=== PATIENT | male | born 1950 | race Caucasian/White ===

== ENCOUNTER → 2019-01-31 22:21 | Outpatient (CLI) | payer MEDICARE, OTHER, SELFPAY ==
[2019-01-31 18:51] VITALS: BMI 33.9
[2019-01-31 23:08] LABS: Absolute Lymphocyte Count 2.03 X10^3/ul (0.83-4.51); Absolute Neutrophil Count 5.1 X10^3/uL (2.0-7.7); Basophil# 0.02 X10^3/uL; Basophil% 0.3 % (0-1); Eosinophil# 0.09 X10^3/uL; Eosinophils% 1.2 % (0-5); Hematocrit 40.6 % (40-54); Hemoglobin 13.6 g/dl (13.0-16.5); Lymphocyte # 2.03 X10^3/ul (4.0); Lymphocyte % 26.1 % (19-41); Mean Corp Hgb Conc 33.5 g/gl (32-36); Mean Corpuscular Hgb 29.6 pg (27.0-32.0); Mean Corpuscular Volume 88.3 fL (80-94); Mean Platelet Vol. 9.9 fl (6.2-12.0); Monocyte# 0.53 X10^3/uL; Monocyte% 6.8 % (0-10); Neutrophil % 65.5 % (47-70); Platelet Count 294 K/mm3 (150-450); RBC Distribution Width CV 12.5 % (11.6-14.6); RBC Distribution Width SD 39.8 fl (35.1-43.9); White Blood Count 7.8 K/mm3 (4.4-11.0)
[2019-01-31 23:09] LABS: POSITIVE COUNT NO; POSITIVE DIFFERENTIAL NO; POSITIVE MORPHOLOGY NO
[2019-01-31 23:22] LABS: ALB/GLOB Ratio 1.2 RATIO (0.9-2.4); AST(SGOT) 14 U/L (15-37); Alanine Aminotransfer ALT/SGPT 23 U/L (16-61); Albumin, Serum 4.1 g/dL (3.2-5.0); Alkaline Phosphatase 69 U/L (45-117); Anion Gap 4 (5-15); BUN 22 mg/dL (7-18); Calcium,Total 9.1 mg/dL (8.5-10.1); Chloride 99 mmol/L (98-107); Creatinine, Serum 1.22 mg/dL (0.70-1.30); EST Glomerular Filtration Rate 63 mL/min (>60); Est Glom Filt Rate - Afr Amer 76 mL/min (>60); Globulin 3.5 g/dL (2.2-4.2); Glucose 162 mg/dL (74-106); Protein, Total 7.6 g/dL (6.4-8.2); Sodium Level 133 mmol/L (136-145)
== END ==
PROVIDERS: Referring Provider Nurse Practitioner; Visit Provider Nurse Practitioner
DX: M25.572 Pain in left ankle and joints of left foot (principal); E11.65 Type 2 diabetes mellitus with hyperglycemia
CPT/HCPCS: 80053; 84443; 84550; 85025

== ENCOUNTER 2019-06-27 10:30 | Outpatient (RCR) | payer MEDICARE, OTHER, SELFPAY ==
[2019-01-31 18:51] VITALS: BMI 33.9
--- NOTE | 2019-05-02 17:03 | HP.PTEVAL_ITS ---
Patient's Visit Information Nida SOTO is a 68 year old M referred to Physical Therapy by Sari Carrillo DPM with a diagnosis of L achilles tear. Date of Evaluation: 05/02/19 Physical Therapist: Polo Khan PT, ATC - Visit Plan Frequency: 2-3x /Week Duration: 6 Weeks Plan: L ankle stretching and strengthening, balance and proprioception ex's, DTR, bike, and HEP - Subjective Findings: Pt reports he injured his L achilles tendon on 01/30/19. Pt reports he was carrying a laundry basket up stairs when he partially ruptured his L achilles. Pt reports he had never had anything like this before. Pt reports he had xrays which didnt show any sathya problems. Pt reports he has no pain this date. Pt reports he had to wear 4 plates for heal lifts at first, but is now only using a small foam pad. Pt reports he still wears a cam boot and is ready to get this off as soon as possible. Pt reports 0/10 pain this date while wearing boot. No tingling or numbness in L LE. No sleep difficulty at this time. Pt reports he is retired at this time. - Pain L achilles Pain Intensity (Out of 10): 0 Pain Intensity Range: 0 - Objective Neuro: B LE sensation is WNL to light touch. Girth at malleolus line: L achilles 29.5 cm, R achilles 30 cm. ROM: R ankle DF= 10, PF= 30; L ankle DF= 0, PF= 30 degrees. MMT: R ankle is 5/5, L ankle 3/5 and painful with all testing - Goals Goal 1:: Decrease L LE pain to aid with ambulation Goal Time Frame: 4-6 Weeks Goal 2:: Increase L ankle DF ROM x 10-15 degrees to aid with restoring a more normal gait pattern Goal Time Frame: 4-6 Weeks Goal 3:: Increase L ankle strength to 5/5 throughout to aid with IADL's Goal Time Frame: 4-6 Weeks Goal 4:: I with HEP Goal Time Frame: 4-6 Weeks - Rehabilitation Potential Physical Therapy Diagnosis: L achilles tendon pain, weakness, and limited ROM secondary to a partial tear Rehabilitation Potential: Good - Anticipated Interventions Patient/Client Instruction: Educate patient on: Condition, Plan of Care For the Purpose of:: To improve self management Therapeutic Exercise to Include: Strength training, Endurance training, Balance training, Flexibilty training, Gait and locomotor training, Passive ROM, Active ROM For the Purpose of:: To decrease pain, To increase ROM, To improve muscle performance and motor function Cryotherapy (ice pack, ice massage): Yes For the Purpose of:: To decrease pain Thank you for the opportunity to evaluate your patient. For Medicare and Medicare HMO plans, please review the plan of care and approve it. It will need to be FAXED BACK to us at [phone] for Medicare purposes. For Medicare only, by signing this I certify the plan of care. Please let me know if there are questions or concerns regarding this plan of care. Physician Signature: Date:____
--- NOTE | 2019-06-27 10:53 | HP.PTDCSUM ---
HP - PT D/C Summary It has been my pleasure to treat Nida SOTO under orders from Sari Carrillo DPM, for the diagnosis of L achilles tear for a total of 21 visit(s). Discharge Date: Please see the following information for a summary of their discharge status. - Subjective Subjective: Pt reports he is ready for discharge. - Pain L achilles Pain Intensity (Out of 10): 0 - Objective Objective/Function: L ankle pain 0/10. L ankle MMT; 5/5 throughout. L ankle DF ROM= 7 degrees. Pt is I with HEP - Goals Goal 1:: Decrease L LE pain to aid with ambulation Goal Progress: Goal Met Goal 2:: Increase L ankle DF ROM x 10-15 degrees to aid with restoring a more normal gait pattern Goal Progress: Goal Met Goal 3:: Increase L ankle strength to 5/5 throughout to aid with IADL's Goal Progress: Goal Met Goal 4:: I with HEP Goal Progress: Goal Met - Plan Plan: Discharge - D/C Information If there are questions or concerns regarding this patient's physical therapy, please feel free to call me at [phone]. Thank you for the referral of this patient. Sincerely, Polo Khan, PT, ATC
== END 2019-06-27 19:00 | disposition home or self-care (01) ==
LOC: PT 10:30
PROVIDERS: Family Provider Nurse Practitioner; PCP Nurse Practitioner; Referring Provider Podiatrist; Visit Provider Podiatrist
DX: S86.012D Strain of left Achilles tendon, subsequent encounter (principal); R26.89 Other abnormalities of gait and mobility; R26.2 Difficulty in walking, not elsewhere classified
CPT/HCPCS: 97110; 97161; 97530

== ENCOUNTER → 2020-03-29 12:24 | Outpatient (CLI) | payer MEDICARE, OTHER, SELFPAY ==
[2020-01-27 19:53] VITALS: BMI 35.4
--- NOTE | 2020-03-29 12:29 | ART_ITS ---
Reason For Study: PVD Procedure A bilateral lower extremity continuous wave Doppler with analog waveform analysis,segmental pressures,and ankle brachial indexes without exercise. Left Segmental Pressures Left brachial= 166mmHg. Left posterior tibial artery = 194mmHg. Left dorsalis pedis artery = 208mmHg. Left digit = 170 mmHg. The left dorsalis pedis waveforms are triphasic. The left posterior tibial artery waveforms are triphasic. Right Segmental Pressures Right brachial= 174mmHg. Right posterior tibial artery = 206mmHg. Right dorsalis pedis artery = 218mmHg. Right digit = 149 mmHg. The right dorsalis pedis waveforms are triphasic. The right posterior tibial artery waveforms are triphasic. Indices The right ankle brachial index by the dorsalis pedis is 1.25. The right ankle brachial index by the posterior tibial artery is 1.18. The right digital-brachial index is .86. The left ankle brachial index by the dorsalis pedis is 1.2. The left ankle brachial index by the posterior tibial artery is 1.11. The left digital-brachial index is .98. Interpretation Summary Triphasic Doppler waveforms are noted at ankle level bilaterally. Pulse-volume recordings appear satisfactory at all levels bilaterally, including low-thigh, calf, ankle, and digital levels. Resting ankle-brachial indices are normal bilaterally. Digital-brachial indices are normal bilaterally. There is no evidence of significant arterial occlusive disease in the lower extremities bilaterally. Ordering Physician: Sari Carrillo Performed By: HAJA BRADEN Priyanka
== END ==
PROVIDERS: PCP Nurse Practitioner; Referring Provider Podiatrist; Visit Provider Podiatrist
DX: L97.522 Non-pressure chronic ulcer of other part of left foot with fat layer exposed (principal); I73.89 Other specified peripheral vascular diseases
CPT/HCPCS: 93923

== ENCOUNTER → 2020-05-21 11:35 | Outpatient (CLI) | payer MEDICARE, OTHER, SELFPAY ==
[2020-01-27 19:53] VITALS: BMI 35.4
[2020-05-21 12:03] LABS: Erythrocyte Sedimentation Rate 25 mm/hr (0-20)
[2020-05-21 12:04] LABS: Absolute Lymphocyte Count 2.02 X10^3/uL (0.83-4.51); Basophil# 0.03 X10^3/uL; Basophil% 0.5 % (0-1); Eosinophil# 0.08 X10^3/uL; Eosinophils% 1.2 % (0-5); Hematocrit 36.5 % (40-54); Hemoglobin 11.9 g/dL (13.0-16.5); Lymphocyte # 2.02 X10^3/ul (4.0); Lymphocyte % 30.7 % (19-41); Mean Corp Hgb Conc 32.6 g/dL (32-36); Mean Corpuscular Hgb 30.1 pg (27.0-32.0); Mean Corpuscular Volume 92.2 fL (80-94); Mean Platelet Vol. 8.9 fl (6.2-12.0); Monocyte# 0.48 X10^3/uL; Monocyte% 7.3 % (0-10); NRBC Flagged by Analyzer 0 % (0-5); Neutrophil # 3.95 X10^3/uL (2.7-7.7); Platelet Count 244 K/mm3 (150-450); RBC Distribution Width CV 12.8 % (11.6-14.6); RBC Distribution Width SD 42.2 fl (35.1-43.9); Red Blood Count 3.96 M/mm3 (4.6-6.2); White Blood Count 6.6 K/mm3 (4.4-11.0)
[2020-05-21 12:32] LABS: CRP < 2.90 mg/L (0.0-3.0)
[2020-05-21 17:10] LABS: AST(SGOT) 20 U/L (15-37); Alanine Aminotransfer ALT/SGPT 28 U/L (16-61); Albumin, Serum 3.7 g/dL (3.2-5.0); Alkaline Phosphatase 61 U/L (45-117); Anion Gap 8 (5-15); BUN 36 mg/dL (7-18); BUN/Creat Ratio 27.7 RATIO (10-20); Chloride 104 mmol/L (98-107); EST Glomerular Filtration Rate 58 mL/min (>60); Est Glom Filt Rate - Afr Amer 71 mL/min (>60); Globulin 3.8 g/dL (2.2-4.2); Glucose 88 mg/dL (74-106); Potassium 4.4 mmol/L (3.5-5.1); Protein, Total 7.5 g/dL (6.4-8.2); Sodium Level 137 mmol/L (136-145)
== END ==
PROVIDERS: PCP Nurse Practitioner; Referring Provider Podiatrist; Visit Provider Podiatrist
DX: L97.522 Non-pressure chronic ulcer of other part of left foot with fat layer exposed (principal); E11.42 Type 2 diabetes mellitus with diabetic polyneuropathy; M86.9 Osteomyelitis, unspecified
CPT/HCPCS: 36415; 80053; 83036; 85025; 85652; 86140

== ENCOUNTER → 2020-09-04 21:44 | Outpatient (CLI) | payer MEDICARE, OTHER, SELFPAY ==
[2020-09-04 19:20] VITALS: BMI 33.0
[2020-09-04 21:55] LABS: Absolute Lymphocyte Count 1.81 X10^3/uL (0.83-4.51); Absolute Neutrophil Count 4.4 X10^3/uL (2.0-7.7); Basophil# 0.03 X10^3/uL; Basophil% 0.4 % (0-1); Eosinophil# 0.06 X10^3/uL; Eosinophils% 0.9 % (0-5); Hematocrit 38.3 % (40-54); Hemoglobin 12.9 g/dL (13.0-16.5); Lymphocyte # 1.81 X10^3/ul (4.0); Lymphocyte % 26.5 % (19-41); Mean Corp Hgb Conc 33.7 g/dL (32-36); Mean Corpuscular Hgb 30.4 pg (27.0-32.0); Mean Corpuscular Volume 90.1 fL (80-94); Mean Platelet Vol. 10.3 fl (6.2-12.0); Monocyte# 0.48 X10^3/uL; NRBC Flagged by Analyzer 0 % (0-5); Neutrophil # 4.44 X10^3/uL (2.7-7.7); Neutrophil % 64.9 % (47-70); Platelet Count 244 K/mm3 (150-450); RBC Distribution Width CV 12.1 % (11.6-14.6); RBC Distribution Width SD 39.8 fl (35.1-43.9); Red Blood Count 4.25 M/mm3 (4.6-6.2); White Blood Count 6.8 K/mm3 (4.4-11.0)
[2020-09-04 22:06] LABS: ALB/GLOB Ratio 1.1 RATIO (0.9-2.4); AST(SGOT) 15 U/L (15-37); Alanine Aminotransfer ALT/SGPT 25 U/L (16-61); Alkaline Phosphatase 73 U/L (45-117); Anion Gap 7 (5-15); BUN 38 mg/dL (7-18); Calcium,Total 9.3 mg/dL (8.5-10.1); Chloride 100 mmol/L (98-107); Cholesterol 130 mg/dL (200); Creatinine, Serum 1.31 mg/dL (0.70-1.30); EST Glomerular Filtration Rate 58 mL/min (>60); Est Glom Filt Rate - Afr Amer 70 mL/min (>60); Globulin 3.6 g/dL (2.2-4.2); Glucose 212 mg/dL (74-106); High Density Lipoprotein 66 mg/dL; Potassium 4.1 mmol/L (3.5-5.1); Protein, Total 7.6 g/dL (6.4-8.2); Sodium Level 136 mmol/L (136-145); Triglycerides 53 mg/dL; Very Low Density Lipoprotein 11 mg/dL (5-40)
== END ==
LOC: OLS.AHF 21:46 → LABSPEC 09-05 06:32
PROVIDERS: Visit Provider Nurse Practitioner
DX: I10 Essential (primary) hypertension (principal); R35.0 Frequency of micturition; E11.9 Type 2 diabetes mellitus without complications; Z12.5 Encounter for screening for malignant neoplasm of prostate
CPT/HCPCS: 80053; 80061; 84153; 85025; G0103

== ENCOUNTER → 2020-09-27 22:02 | Outpatient (CLI) | payer MEDICARE, OTHER, SELFPAY ==
[2020-09-27 16:58] VITALS: BMI 32.5
[2020-09-27 22:12] LABS: Absolute Lymphocyte Count 1.94 X10^3/uL (0.83-4.51); Absolute Neutrophil Count 4.2 X10^3/uL (2.0-7.7); Basophil# 0.02 X10^3/uL; Basophil% 0.3 % (0-1); Eosinophil# 0.06 X10^3/uL; Eosinophils% 0.9 % (0-5); Hematocrit 36.7 % (40-54); Lymphocyte # 1.94 X10^3/ul (4.0); Lymphocyte % 28.2 % (19-41); Mean Corp Hgb Conc 32.7 g/dL (32-36); Mean Corpuscular Hgb 29.5 pg (27.0-32.0); Mean Corpuscular Volume 90.2 fL (80-94); Mean Platelet Vol. 10.6 fl (6.2-12.0); Monocyte# 0.59 X10^3/uL; Monocyte% 8.6 % (0-10); NRBC Flagged by Analyzer 0 % (0-5); Neutrophil # 4.24 X10^3/uL (2.7-7.7); Neutrophil % 61.7 % (47-70); Platelet Count 223 K/mm3 (150-450); RBC Distribution Width CV 12.4 % (11.6-14.6); RBC Distribution Width SD 40.7 fl (35.1-43.9); Red Blood Count 4.07 M/mm3 (4.6-6.2); White Blood Count 6.9 K/mm3 (4.4-11.0)
== END ==
PROVIDERS: Referring Provider Nurse Practitioner; Visit Provider Nurse Practitioner
DX: R22.0 Localized swelling, mass and lump, head (principal)
CPT/HCPCS: 85025

== ENCOUNTER → 2021-10-01 21:57 | Outpatient (CLI) | payer MEDICARE, OTHER, SELFPAY ==
[2021-10-01 22:14] LABS: Absolute Lymphocyte Count 1.71 X10^3/uL (0.83-4.51); Absolute Neutrophil Count 4.1 X10^3/uL (2.0-7.7); Basophil# 0.02 X10^3/uL; Basophil% 0.3 % (0-1); Eosinophil# 0.05 X10^3/uL; Eosinophils% 0.8 % (0-5); Lymphocyte # 1.71 X10^3/ul (0.83-4.51); Lymphocyte % 26.9 % (19-41); Mean Corp Hgb Conc 33.3 g/dL (32-36); Mean Corpuscular Hgb 29.9 pg (27.0-32.0); Mean Corpuscular Volume 89.6 fL (80-94); Mean Platelet Vol. 10.8 fl (6.2-12.0); Monocyte# 0.45 X10^3/uL; Monocyte% 7.1 % (0-10); NRBC Flagged by Analyzer 0 % (0-5); Neutrophil # 4.12 X10^3/uL (2.7-7.7); Neutrophil % 64.7 % (47-70); Platelet Count 237 K/mm3 (150-450); RBC Distribution Width CV 12.1 % (11.6-14.6); RBC Distribution Width SD 39.5 fl (35.1-43.9); Red Blood Count 4.02 M/mm3 (4.6-6.2); White Blood Count 6.4 K/mm3 (4.4-11.0)
[2021-10-01 22:32] LABS: ALB/GLOB Ratio 0.9 RATIO (0.9-2.4); AST(SGOT) 14 U/L (15-37); Alanine Aminotransfer ALT/SGPT 19 U/L (16-61); Albumin, Serum 3.4 g/dL (3.2-5.0); Alkaline Phosphatase 71 U/L (45-117); Anion Gap 4 (5-15); BUN 28 mg/dL (7-18); Calcium,Total 9.2 mg/dL (8.5-10.1); Chloride 101 mmol/L (98-107); Cholesterol 126 mg/dL (200); Creatinine, Serum 1.27 mg/dL (0.70-1.30); EST Glomerular Filtration Rate 60 mL/min (>60); Est Glom Filt Rate - Afr Amer 72 mL/min (>60); Globulin 3.7 g/dL (2.2-4.2); Glucose 168 mg/dL (74-106); High Density Lipoprotein 73 mg/dL; PSA,Total- Diagnostic 0.32 ng/mL (0.0-4.0); Potassium 4.5 mmol/L (3.5-5.1); Protein, Total 7.1 g/dL (6.4-8.2); Sodium Level 134 mmol/L (136-145); Triglycerides 38 mg/dL; Very Low Density Lipoprotein 8 mg/dL (5-40)
== END ==
PROVIDERS: Visit Provider Nurse Practitioner
DX: D64.9 Anemia, unspecified (principal); I10 Essential (primary) hypertension; E11.9 Type 2 diabetes mellitus without complications; R35.0 Frequency of micturition
CPT/HCPCS: 80053; 80061; 83036; 84153; 85025

== ENCOUNTER → 2022-06-11 | Outpatient (CLI) | payer MEDICARE, OTHER, SELFPAY | END | disposition home or self-care (01) | PROVIDERS: Visit Provider Nurse Practitioner | DX: E11.621 Type 2 diabetes mellitus with foot ulcer (principal); L97.511 Non-pressure chronic ulcer of other part of right foot limited to breakdown of skin; S90.421A Blister (nonthermal), right great toe, initial encounter | CPT/HCPCS: 87070; 87077; 87186; 87205 ==

== ENCOUNTER → 2022-10-15 | Outpatient (CLI) | payer MEDICARE, OTHER, SELFPAY ==
[2022-10-15 21:52] LABS: AST(SGOT) 13 U/L (15-37); Alanine Aminotransfer ALT/SGPT 22 U/L (16-61); Albumin, Serum 3.6 g/dL (3.2-5.0); Alkaline Phosphatase 77 U/L (45-117); Anion Gap 5 (5-15); BUN 50 mg/dL (7-18); BUN/Creat Ratio 32.5 RATIO (10-20); Calcium,Total 9.3 mg/dL (8.5-10.1); Chloride 101 mmol/L (98-107); Cholesterol 152 mg/dL (200); Creatinine, Serum 1.54 mg/dL (0.70-1.30); EST Glomerular Filtration Rate 48 mL/min (>60); Est Glom Filt Rate - Afr Amer 58 mL/min (>60); Globulin 3.7 g/dL (2.2-4.2); Glucose 218 mg/dL (74-106); High Density Lipoprotein 73 mg/dL; PSA,Total - Annual Screen 0.18 ng/mL (0.00-4.00); Potassium 4.8 mmol/L (3.5-5.1); Protein, Total 7.3 g/dL (6.4-8.2); Sodium Level 136 mmol/L (136-145); Triglycerides 66 mg/dL; Very Low Density Lipoprotein 13 mg/dL (5-40)
[2022-10-15 21:56] LABS: Absolute Lymphocyte Count 2.68 X10^3/uL (0.83-4.51); Absolute Neutrophil Count 3.2 X10^3/uL (2.0-7.7); Basophil# 0.02 X10^3/uL; Basophil% 0.3 % (0-1); Eosinophil# 0.11 X10^3/uL; Eosinophils% 1.7 % (0-5); Hematocrit 38.1 % (40-54); Hemoglobin 12.4 g/dL (13.0-16.5); Lymphocyte # 2.68 X10^3/ul (0.83-4.51); Lymphocyte % 41.5 % (19-41); Mean Corp Hgb Conc 32.5 g/dL (32-36); Mean Corpuscular Hgb 28.6 pg (27.0-32.0); Mean Corpuscular Volume 87.8 fL (80-94); Mean Platelet Vol. 10.5 fl (6.2-12.0); Monocyte# 0.47 X10^3/uL; Monocyte% 7.3 % (0-10); NRBC Flagged by Analyzer 0 % (0-5); Neutrophil # 3.16 X10^3/uL (2.7-7.7); Neutrophil % 48.9 % (47-70); Platelet Count 242 K/mm3 (150-450); RBC Distribution Width CV 12.4 % (11.6-14.6); RBC Distribution Width SD 39.8 fl (35.1-43.9); Red Blood Count 4.34 M/mm3 (4.6-6.2); White Blood Count 6.5 K/mm3 (4.4-11.0)
[2022-10-15 22:26] LABS: Hemoglobin A1c 10.1 % (3.8-5.6)
== END | disposition home or self-care (01) ==
PROVIDERS: Visit Provider Nurse Practitioner
DX: S81.801D Unspecified open wound, right lower leg, subsequent encounter (principal); E11.621 Type 2 diabetes mellitus with foot ulcer; L97.511 Non-pressure chronic ulcer of other part of right foot limited to breakdown of skin; E11.9 Type 2 diabetes mellitus without complications; I10 Essential (primary) hypertension; D64.9 Anemia, unspecified; R35.0 Frequency of micturition; X58.XXXD Exposure to other specified factors, subsequent encounter; Z12.5 Encounter for screening for malignant neoplasm of prostate
CPT/HCPCS: 80053; 80061; 83036; 84153; 85025; G0103

== ENCOUNTER → 2023-11-23 | Outpatient (CLI) | payer MEDICARE, OTHER, SELFPAY ==
--- OUTSIDE RECORDS SUMMARY | 2023-11-23 21:56 | XMS RPT_ITS | CCD ---
Author Name Unknown Address [address] [place] [address] Organization [facility] Care Team Providers Care Electric Motor And Generator Assembler Name Role Phone Isai Clarke Unavailable Rachell Culp Unavailable ELIOT GOFFA Darren Referring Unavailable GOFF, MARCI L Referring Unavailable Goff LEGUILLON DEBEADER.Marci VALADEZ Primary Care Provide r LIMJAMES, REJI Referring Unavailable GOFF, MARCI L Primary Care Unavailable GOFF, MARCI L Primary Care Unavailable SCHUYLER MENDOZA Referring Unavailable Goff LEGUILLON DEBEADER.HOME COMPANION, Marci L Primary Care Provide r LIMPEROS, REJI Referring Unavailable GOFF, MARCI L Primary Care Unavailable KAVITHA, CLEMENTE Referring Unavailable GOFF, MARCI L Primary Care Unavailable KAVITHA, CLEMENTE Referring Unavailable GOFF, MARCI L Primary Care Unavailable GOFF, MARCI L Primary Care Unavailable LIMPEROS, REJI Admitting Unavailable LIMPEROS, REJI Attending Unavailable LIMPEROS, REJI Admitting Unavailable LIMPEROS, REJI Attending Unavailable GOFF, MARCI L Primary Care Unavailable Allergies Allergy Classification Reported Allergen(s) Allergy Type Date of Onset Reaction(s) Facility (5 sources) FOOD EXTRACTS; Translations: [FOOD EXTRACTS] Propensity to adverse reactions to drug (disorder) 6 Swelling [facility] Other [place] [facility] Medications Completed/Discontinued Medications Medication Drug Class(es) Dates Sig (Normalized) Sig (Original) ascorbic acid 1000 mg oral tablet (2 sources) Vitamin C take 1 tablet by abigail th once daily Ascorbic Acid 1,000 mg tablet Take 1,000 mg by mouth once daily. 0 Active Problems Active Problems Problem Classification Problem Date Documented Date Episodic/Chronic Acquired foot deformities (1 source) Hallux varus (acquired), left foot; Translations: [Hallux malleus of left foot] Onset: 12-24-2022 Chronic Acquired foot deformities (2 sources) Hallux varus (acquired), right foot; Translations: [Hallux hammertoe, right] Onset: 08-18-2022 Chronic Chronic ulcer of skin (1 source) Non-pressure chronic ulcer of other part of right foot limited to breakdown of skin; Translations: [Ulcer of toe of right foot, limited to breakdown of skin (HCC)] Onset: 08-18-2022 Chronic Deficiency and other anemia (2 sources) Anemia; Translations: [Anemia, unspecified] Onset: 12-11-2022 Episodic Deficiency and other anemia (1 source) Anemia, unspecified; Translations: [Anemia, unspecified type] Onset: 12-11-2022 Episodic Diabetes mellitus with complications (4 sources) Type 2 diabetes mellitus; Translations: [Type 2 diabetes mellitus with other specified complication] Onset: 08-15-2022 Chronic Diabetes mellitus without complication (2 sources) Insulin treated type 2 diabetes mellitus; Translations: [Type 2 diabetes mellitus without complications] Onset: 08-15-2022 08-15-2022 Chronic Disorders of lipid metabolism (5 sources) Mixed hyperlipidemia; Translations: [Mixed hyperlipidemia] Onset: 08-15-2022 Chronic Essential hypertension (5 sources) Benign essential hypertension; Translations: [Essential (primary) hypertension] Onset: 08-15-2022 Chronic Osteoarthritis (18 sources) Osteoarthritis of knee; Translations: [Degenerative joint disease of shoulder region] Onset: 03-25-2016 04-19-2013 Chronic Other acquired deformities (1 source) Contracture, right foot; Translations: [Contracture of joint of right foot] Onset: 12-24-2022 Chronic Other connective tissue disease (1 source) Other specified soft tissue disorders; Translations: [Other specified soft tissue disorders] Onset: 02-01-2019 Episodic Other non-traumatic joint disorders (1 source) Pain in left ankle and joints of left foot; Translations: [Pain in left ankle and joints of left foot] Onset: 02-01-2019 Episodic Other nutritional; endocrine; and metabolic disorders (4 sources) Obesity; Translations: [Other obesity due to excess calories] Onset: 08-15-2022 Chronic Other nutritional; endocrine; and metabolic disorders (1 source) Other obesity due to excess calories; Translations: [Class 1 obesity due to excess calories with serious comorbidity and body mass index (BMI) of 34.0 to 34.9 in adult] Onset: 12-11-2022 Chronic Other nutritional; endocrine; and metabolic disorders (1 source) Body mass index (BMI) 34.0-34.9, adult; Translations: [Class 1 obesity due to excess calories with serious comorbidity and body mass index (BMI) of 34.0 to 34.9 in adult] Onset: 12-11-2022 Chronic Spondylosis; intervertebral disc disorders; other back problems (3 sources) Displacement of lumbar intervertebral disc without myelopathy; Translations: [Other intervertebral disc displacement, lumbar region] Onset: 06-24-2016 06-24-2016 Chronic Unclassified (6 sources) Aftercare ; Translations: [Encounter for other orthopedic aftercare] Onset: 05-01-2016 03-05-2017 Past or Other Problems Problem Classification Problem Date Documented Da te Episodic/Chronic Acquired foot deformities (1 source) Other deformities of toe(s) (acquired), right foot; Translations: [Acquired mallet toe, right] Onset: 08-18-2022 Episodic Joint disorders and dislocations; trauma-related (6 sources) Subluxation of joint of thoracic spine; Translations: [Subluxation complex (vertebral)] Onset: 06-24-2016 06-24-2016 Episodic Other aftercare (3 sources) Encounter for other specified surgical aftercare; Translations: [Encounter for other specified surgical aftercare] Onset: 05-27-2016 05-27-2016 Episodic Other aftercare (2 sources) FPC (current) use of insulin; Translations: [Type 2 diabetes mellitus with other specified complication, with long-term current use of insulin (HCC)] Onset: 08-15-2022 Episodic Other bone disease and musculoskeletal deformities (3 sources) Segmental and somatic dysfunction; Translations: [Segmental and somatic dysfunction of sacral region] Onset: 06-24-2016 06-24-2016 Episodic Other connective tissue disease (6 sources) Bicipital tendinitis, left shoulder; Translations: [Rotator cuff syndrome] Onset: 04-11-2016 05-08-2016 Episodic Other non-traumatic joint disorders (18 sources) Shoulder pain; Translations: [Impingement syndrome of shoulder region] Onset: 06-23-2014 11-24-2016 Episodic Residual codes; unclassified (1 source) Other specified personal risk factors, not elsewhere classified; Translations: [Other specified personal risk factors, not elsewhere classified] Onset: 08-25-2018 Episodic Sprains and strains (3 sources) Sprain of medial collateral ligament of unspecified knee, initial encounter; Translations: [Sprain of medial collateral ligament of unspecified knee, initial encounter] Onset: 06-23-2014 06-23-2014 Episodic Unclassified (3 sources) History of operative procedure on shoulder; Translations: [Presence of right artificial shoulder joint] Onset: 03-04-2017 03-05-2017 Episodic Results Test Name Value Interpretation Reference Range Facil ity Vital Signs Date Time Vital Sign Value Performing Clinician Facility 12-11-2022 14:58-0500 Diastolic blood pressure 70 mm[Hg] Pacc 2 Work Phone: [facility] 12-11-2022 14:58-0500 Systolic blood pressure 210 mm[Hg] Pacc 2 Work Phone: [facility] 12-11-2022 14:16-0500 Body height 182.9 cm Pacc 2 Work Phone: [facility] 12-11-2022 14:16-0500 Body temperature 98.29 [degF] Pacc 2 Work Phone: [facility] 12-11-2022 14:16-0500 Body weight 115.21 kg Pacc 2 Work Phone: [facility] 12-11-2022 14:16-0500 Heart rate 58 /min Pacc 2 Work Phone: [facility] 12-11-2022 14:16-0500 Respiratory rate 16 /min Pacc 2 Work Phone: [facility] 12-11-2022 14:16-0500 SaO2% (BldA) [Mass fraction] 99 % Pacc 2 Work Phone: [facility] 08-15-2022 08:08-0400 Body height 185.4 cm Pacc 1 Work Phone: [facility] 08-15-2022 08:08-0400 Body temperature 97.7 [degF] Pacc 1 Work Phone: [facility] 08-15-2022 08:08-0400 Body weight 116.12 kg Pacc 1 Work Phone: [facility] 08-15-2022 08:08-0400 Diastolic blood pressure 70 mm[Hg] Pacc 1 Work Phone: [facility] 08-15-2022 08:08-0400 Heart rate 60 /min Pacc 1 Work Phone: [facility] 08-15-2022 08:08-0400 Respiratory rate 16 /min Pacc 1 Work Phone: [facility] 08-15-2022 08:08-0400 SaO2% (BldA) [Mass fraction] 99 % Pacc 1 Work Phone: [facility] 08-15-2022 08:08-0400 Systolic blood pressure 150 mm[Hg] Pacc 1 Work Phone: [facility] 07-03-2016 11:57-0400 BMI (Body Mass Index) 31.84 kg/m2 [facility] Work Phone: 07-03-2016 11:57-0400 BP Diastolic 62 mm[Hg] [facility] Work Phone: 07-03-2016 11:57-0400 BP Systolic 158 mm[Hg] [facility] Work Phone: 07-03-2016 11:57-0400 Pulse (Heart Rate) 18 /min [facility] Work Phone: 07-03-2016 11:57-0400 Respiratory Rate 42 /min [facility] Work Phone: 07-03-2016 11:57-0400 Weight 112.49 kg [facility] Work Phone: 04-18-2013 [id number] Height 187.96 cm Rachell Culp [facility] Work Phone: Encounters Encounter Date Encounter Type Care Provider Facility Start: 12-24-2022 End: 12-24-2022 ambulatory REJI BRADY Facility:[facility] Start: 12-11-2022 End: 12-12-2022 ambulatory CLEMENTE PLUMMER Facility:[facility] Start: 12-11-2022 [facility]counter for other [facility]ced[facility] Start: 12-11-2022 End: 12-11-2022 Admission to [place] [id number] Work Phone: Start: 12-11-2022 End: 12-11-2022 [place] [id number] Work Phone: Pre Anesthesia Procedures Date Procedure Procedure Detail Performing Clinician Start: 08-15-2022 H/O: artificial joint History of right shoulder replacement [facility] Randall 1 Work Phone: Start: 11-14-2016 End: 12-03-2016 Ct upper extremity w/o dye Isai Clarke Work Phone: Start: 11-14-2016 End: 12-03-2016 X-ray exam of shoulder Isai Hines Vince Work Phone: Start: 07-10-2016 End: 07-10-2016 Chiropract manj 1-2 regions Jordyn Chung Dossi DC Work Phone: Start: 07-10-2016 End: 07-10-2016 Electric stimulation therapy Jordyn Chung Dossi DC Work Phone: Start: 07-10-2016 End: 07-10-2016 Massage therapy Jordyn Chung Dossi DC Work Phone: Start: 07-10-2016 End: 07-10-2016 Mechanical traction therapy Jordyn Chung Dossi DC Work Phone: Start: 07-10-2016 End: 12-03-2016 Mri joint upr extrem w/o dusty Lam Work Phone: Start: 07-08-2016 End: 07-08-2016 Chiropract manj 1-2 regions Jordyn B Dossi DC Work Phone: Start: 07-08-2016 End: 07-08-2016 Electric stimulation therapy Jordyn B Dossi DC Work Phone: Start: 07-08-2016 End: 12-03-2016 Follow up Appt 2x/week Jordyn B Dossi DC Work Phone: Start: 07-08-2016 End: 07-08-2016 Massage therapy Jordyn B Dossi DC Work Phone: Start: 07-03-2016 End: 07-03-2016 Chiropract manj 1-2 regions Jordyn B Dossi DC Work Phone: Start: 07-03-2016 End: 07-03-2016 Electric stimulation therapy Jordyn B Dossi DC Work Phone: Start: 07-03-2016 End: 12-03-2016 Follow up Appt 2x/week Jordyn B Dossi DC Work Phone: Start: 07-03-2016 End: 07-03-2016 Massage therapy Jordyn B Dossi DC Work Phone: Start: 06-24-2016 End: 06-24-2016 Chiropract manj 1-2 regions Jordyn B Dossi DC Work Phone: Start: 06-24-2016 End: 06-24-2016 Electric stimulation therapy Jordyn B Dossi DC Work Phone: Start: 06-24-2016 End: 12-03-2016 Follow up Appt 3x/week Jordyn B Dossi DC Work Phone: Start: 06-24-2016 End: 06-24-2016 Massage therapy Jordyn B Dossi DC Work Phone: Start: 05-28-2016 End: 05-28-2017 Physical Therapy General Karen Lam Work Phone: Start: 05-07-2016 End: 05-07-2017 Physical Therapy General Karen Lam Work Phone: Start: 04-11-2016 End: 12-03-2016 Mri joint upr extrem w/o dye Karen Lam Work Phone: Start: 03-25-2016 End: 12-03-2016 Mri joint upr extrem w/o dye Karen Lam Work Phone: Start: 10-19-2014 End: 12-03-2016 X-ray exam of shoulder Karen hill Work Phone: Plan of Treatment Date Care Activity Detail Author Start: 03-11-2023 Hemoglobin A1c/Hemoglobin.total in Blood HBA1C [facility] Start: 11-16-2022 ADVANCE DIRECTIVE DISCUSSION ADVANCE DIRECTIVE DISCUSSION [facility] Start: 11-16-2022 DEPRESSION ASSESSMENT DEPRESSION ASS ESSMENT [facility] Start: 08-15-2022 End: 10-15-2022 Hemoglobin A1c in Blood [facility] Work Phone: Payers Date Payer Category Payer Medicare [id number] 2020 Unknown MMO MMO MEDICARE SUPPLEMENT [id number] 2020-Present [phone] [address] [place] [address] Indemnity [id number] 2017 Medicare MEDICARE MEDICAR E A AND B [id number] 2017-Present [phone] [address] [address] [place] [address] Medicare [id number] 2017 Medicare [id number] Social History Date Type Detail Facility Start: 12-31-2015 Tobacco smoking stat us ARIS Never smoked tobacco [facility] Start: 12-31-2015 Tobacco use and exposure Smoke less tobacco non-user [facility] Start: 08-15-2022 End: 12-11-2022 Alcohol intake Current non-drinker of alcohol (finding) [facility] Start: 1950 Sex Assigned At Not on file [facility] Start: 08-05-2022 End: 08-15-2022 Exposure to SARS-CoV-2 (event) Not sure [facility] Clinical Notes 01-09-2016 to 12-24-2022 Patient InstructionsClemente Plummer PA-C - 12/11/2022 2:20 PM Parisa Mendoza APRN.HOME COMPANION - 08/15/2022 8:19 AM EDTPatient Instructions Note Date & Type Note Facility 12-24-2022 Note HNO ID: [id number] Author: Isai Carpio APRN.NUTRITION FACULTY MEMBER Service: Anesthesiology Author Type: Nurse Student Specialist Type: Anesthesia Procedure Notes Filed: 12/24/2022 3:06 PM Note Text: ANESTHESIOLOGY PROCEDURE NOTE PIV General Information Procedure Start Time/Medication Administration: 12/24/2022 2:49 PM Patient Location: OR Staffing NUTRITION FACULTY MEMBER: Isai Carpio APRN.NUTRITION FACULTY MEMBER Performed by: BERNARDO Procedure Details Indication: need for IV access Needle Size/Type: 20 gauge angiocath Orientation: Left Location: Forearm Imaging Guidance Used: No SIGNATURE: Isai Carpio APRN.NUTRITION FACULTY MEMBER PATIENT NAME: Nida Dawson DATE: December 24, 2022 TIME: 3:06 PM CSN: [id number] [facility] 12-19-2022 Note HNO ID: [id number] Author: Clemente Plummer PA-C Service: ? Author Type: Physician Veneer Stock Layer Type: Progress Notes Filed: 12/22/2022 2:19 PM Note Text: Called patient to review home blood pressure readings. Pt reports improved blood pressure readings and states compliance with BP meds. BP this morning 142/70. Encouraged continued compliance with BP meds. Pt verbalized understanding. Dr. Brady is OK to proceed with A1C 9.3%, per call with resource RN. Pt is optimally prepared for surgery pending DOS BP. Clemente Plummer PA-C 12/19/2022 11:58 AM [facility] 12-12-2022 Note HNO ID: [id number] Author: Clemente Plummer PA-C Service: ? Author Type: Physician Veneer Stock Layer Type: Progress Notes Filed: 12/19/2022 11:59 AM Note Text: Lab Value Units Date High Low HB 12.8 g/dL 12/11/2022 17.0 13.0 HCT 39.3 % 12/11/2022 51.0 39.0 WBC 7.76 k/uL 12/11/2022 11.00 3.70 PLT 234 k/uL 12/11/2022 400 150 NA 139 mmol/L 12/11/2022 144 136 K 4.2 mmol/L 12/11/2022 5.1 3.7 GLUC 276 mg/dL 12/11/2022 99 74 BUN 30 mg/dL 12/11/2022 24 9 CREAT 1.28 mg/dL 12/11/2022 1.22 0.73 PTSEC No results within date range. INR No results within date range. APTT No results within date range. ALT 12 U/L 08/15/2022 54 10 AST 14 U/L 08/15/2022 40 14 TBILI 0.2 mg/dL 08/15/2022 1.3 0.2 TSH No results within date range. Hemoglobin A1C (%) Date Value 12/11/2022 9.3 08/15/2022 8.2 Recent Results (from the past 8760 hour(s)) ECG COMPLETE Collection Time: 12/11/22 2:53 PM Result Value Ventricular Rate 55 Atrial Rate 55 P-R Interval 284 QRS Duration 120 QT Interval 440 QTC Calculation (Bazett) 420 Calculated P Glen 32 Calculated R Glen -53 Calculated T Glen 7 Impression SINUS BRADYCARDIA WITH 1ST DEGREE A-V BLOCK LEFT ANTERIOR FASCICULAR BLOCK POOR R-WAVE PROGRESSION ABNORMAL ECG WHEN COMPARED WITH ECG OF 22-MAY-2015 15:18, SEPTAL INFARCT IS NOW PRESENT Confirmed by MD BUBBA, QARAB ([id number]) on 12/12/2022 3:42:06 PM Labs and ECG reviewed. A1C 9.3% - letter sent to surgeon on 12/12/2022 for review. Letter received back from PCP regarding elevated BP, scanned in [facility]. Called and spoke with pt regarding BP. He states that he was mistaken and he did not take his BP meds yesterday prior to [facility] visit and he also forgot to take BP med the previous day as well. He states he took his BP med this morning and check BP at home. BP today 158/83. Advised pt to check BP daily for a week. I will call patient on 2/3/23 to review readings with pt. Pt verbalized understanding and agreement with plan. Clemente Plummer PA-C 12/12/2022 9:17 AM [facility] 12-11-2022 Instructions Clemente Plummer PA-C - 12/11/2022 2:44 PM EST PATIENT PREOPERATIVE INSTRUCTIONS [facility]: [phone] -- [address] [facility] [address]. Please read below carefully for your personalized instructions. Dietary Restrictions: - No solid food after midnight. - You may have 12 ounces of clear liquids (water, clear juices such as apple juice or gatorade, carbonated beverages, clear tea, black coffee, jello) until 2 hours before scheduled arrival at facility. Medications: Unless instructed differently below, stay on all of your medications until your surgery. Approved medications to take the morning of surgery with a sip of water: simvastatin. DO NOT TAKE YOUR LISINOPRIL THE NIGHT BEFORE OR MORNING OF SURGERY. - No oral diabetic medication the morning of surgery. - Accucheck day of surgery. - Take full dose of insulin the day before surgery. - Take half dose of long acting insulin (Lantus, NPH) the day of surgery. If you take any medications for erectile dysfunction-Cialis (Tadalafil), Levitra, Staxyn (Vardenafil) Viagra (Sildenenafil please do not take these for 48 hours before surgery. If you start any new medications after today's visit, please contact the surgeon's office. Blood Thinning Medications: - Stop NSAIDS (Ibuprofen, Advil, Aleve, Motrin, Celebrex, Mobic, etc.) 7 days before surgery, as directed by your surgeon. - Stop Aspirin 7 days before surgery, as directed by your surgeon. - Stop Vitamin E, ALL multi-vitamins, herbals and dietary supplements 7 days before surgery. - You may take Tylenol (Acetaminophen) or any of your pain medications that do not contain aspirin or NSAIDS as needed. Important Reminders: - Candy, mints, and tobacco products are NOT permitted the morning of surgery. - Hearing aids, dentures and glasses may be worn the morning of surgery. - NO jewelry, body piercings, makeup, hairpins or contacts are to be worn the day of surgery. If you develop symptoms such as a fever, cold, or flu, or have other changes to your health within TWO DAYS of scheduled surgery or the morning of surgery, please contact the surgery center above. Personal Belongings: -Please have photo ID and insurance cards. -If you do not have a copy of advance directives on file with us, please bring a copy with you on the day of surgery. - Leave ALL valuables and money at home or with family members. For Outpatient Procedures: - YOU MUST HAVE A RESPONSIBLE AEROBICS INSTRUCTOR TAKE YOU HOME. A PHYSICAL PLANT EMPLOYEE OR HEAVY TRUCK MECHANIC CANNOT BE MADE A RESPONSIBLE AEROBICS INSTRUCTOR. - We recommend that a responsible person stays with you overnight to take care of you. - You cannot stay in a hotel alone after outpatient surgery. You will not be permitted to have your surgery, if you do not have someone to take care of you. Arrival Time for Surgery: - The Surgery Center or hospital where you are having surgery will call the afternoon before surgery (or Thursday for Thursday surgery) with a scheduled arrival time. - If you have not heard by 4 pm, please contact the surgery center above. Please be aware that emergency situations arise, which may delay or change your surgical time. If this happens, we will notify you as soon as possible and regret any inconvenience. If you already have an Advance Directive, please fax a copy to [phone] or email to for it to be added to your chart. If you do not have an Advance Directive, you can find the appropriate form and more information at [email or web address]. We recommend that you complete the Advance Directive form found on the website and bring it with you the day of your surgery. It can be witnessed and scanned into your chart that day. documented in this encounter [facility] 12-11-2022 History and physi shai note HISTORY AND PHYSICAL EXAMINATION SERVICE DATE: 12/11/2022 SERVICE TIME: 2:25 PM PRIMARY CARE PHYSICIAN: Marci Goff APRN.HOME COMPANION REASON FOR VISIT: Nida Dawson is a 72 year old male who is scheduled for Procedure(s): AMPUTATION TOE INTERPHALANGEAL JOINT (Left) CAPSULOTOMY MTP (Left) DEBRIDEMENT BONE W/ EPIDERMIS/DERMIS/ SUBCUTANEOUS TISSUE/ MUSCLE/FASCIA FIRST 20 SQ CM OR LESS (Left) at the request of Dr. Reji Brady DPM for consultation. My final recommendation will be communicated back to the requesting physician by way of shared medical record or letter. Subjective The patient has the following: ACTIVE PROBLEM LIST Type 2 Diabetes Mellitus, With Long-Term Current Use of Insulin (Hcc) Essential Hypertension, Benign Mixed Hyperlipidemia Class 1 Obesity Due to Excess Calories With Serious Comorbidity and Body Mass Index (Bmi) of 34.0 to 34.9 in Adult History of Right Shoulder Replacement Anemia COVID-19 Immunization Status Overdue - COVID-19 VACCINE (4 - Booster for Moderna series) Overdue since 01/08/2022 11/13/2021 Imm Admin: COVID-19 original vaccine, full dose, monovalent (MODERNA) 04/04/2021 Imm Admin: COVID-19 original vaccine, full dose, monovalent (MODERNA) 03/07/2021 Imm Admin: COVID-19 original vaccine, full dose, monovalent (MODERNA) CHIEF COMPLAINT: contracture of joint on left foot HPI: Nida Dawson is a 72 year old male presenting for pre-anesthesia consultation. Pt has history of contracture of joint of left great toe. Denies pain or ulceration. Above procedure recommended to manage symptoms. Procedure scheduled on 12/24/2022 at [place]. REVIEW OF SYSTEMS: General: No weight loss, malaise or fevers. Neurological: No history of TIA's, stroke, PROGRAM CONTROL ANALYST tumor, impaired sensorium, hemiplegia, paraplegia or quadraplegia. No neurological symptoms or problems. Respiratory: No history of current cough or dyspnea, or pneumonia in the past 6 weeks. No history of respiratory/pulmonary symptoms or problems. Cardiovascular: Positive for: hyperlipidemia and hypertension Negative for: arrhythmia, atrial fibrillation, CHF, DVT/PE, recent CO and murmur/valvular heart disease. GI: No history of GI symptoms or problems. No history of esophageal varices, recent ascites, or ETOH greater than 2 drinks per day. : No history of dysuria, frequency or incontinence, stones or chronic kidney disease. No difficulty urinating, nocturia > 1 time per night or hematuria. Endocrine: Positive for: diabetes mellitus (A1C 8.2 in 07/2022, checks BS at home, FBS 60-85 per pt). Patient's diabetes mellitus is controlled by insulin and oral agents. Negative for: hyperthyroidism, hypothyroidism and steroid for chronic problem. Hematology: Positive for: anemia. Negative for: factor V Leiden and chronic anti-coagulation/platelet meds. Oncology: No history of CA metastasis, chemo within 30 days, or radiotherapy within 90 days. No history of oncological symptoms or problems. Psych: No history of psychiatric symptoms or problems. Musculoskeletal: See HPI. Skin: Negative for lesions, rash and itching. PAST MEDICAL HISTORY Diagnosis Date Diabetes (HCC) Hypertension Lipoma of anterior chest wall PAST SURGICAL HISTORY Procedure Laterality Date KNEE SURGERY HX Bilateral PAST SURGICAL HISTORY OF 2021 right foot surgery SHOULDER SURGERY HX Right FAMILY HISTORY Problem Relation Age of Onset Cancer Mother Heart Father Social History Tobacco Use Smoking status: Never Smokeless tobacco: Never Vaping Use Vaping Use: Never used Substance Use Topics Alcohol use: No Drug use: No Prior to Admission medications as of 12/11/22 1429 Medication Sig Last Dose Taking glimepiride (AMARYL) 4 mg tablet Take 4 mg by mouth daily with breakfast. Taking Yes pioglitazone (ACTOS) 45 mg tablet Take 45 mg by mouth once daily. Taking Yes insulin degludec (TRESIBA FLEXTOUCH U-100 SUBCUTANEOUS) Inject 25 Units subcutaneously. Taking Yes Vitamin A 2,400 mcg capsule Take 2,400 Units by mouth once daily. Taking Yes Cyanocobalamin 2,500 mcg subl Dissolve under the tongue. Taking Yes Ascorbic Acid 1,000 mg tablet Take 1,000 mg by mouth once daily. Taking Yes cholecalciferol (VITAMIN D3) 5,000 unit tab Take 5,000 Units by mouth once daily. Taking Yes magnesium oxide 400 mg magnesium tab Take by mouth. Taking Yes lisinopril (ZESTRIL, PRINIVIL) 20 mg tablet Take 20 mg by mouth once daily. Taking Yes hydrochlorothiazide (HYDRODIURIL, ESIDRIX) 12.5 mg tablet Take 12.5 mg by mouth twice daily. Taking Yes metFORMIN (GLUCOPHAGE) 1,000 mg tablet Take 1,000 mg by mouth twice daily with meals. Taking Yes simvastatin (ZOCOR) 40 mg tablet Take 40 mg by mouth daily at bedtime. Taking Yes glyBURIDE (MICRONASE, DIABETA) 5 mg tablet Take 10 mg by mouth twice daily with meals. Taking Yes No medication comments found. ALLERGIES Allergen Reactions Food Extracts Swelling Mushrooms Objective PHYSICAL EXAM: General: alert and oriented and obese. Pertinent negatives noted - not distressed. Skin: normal color, no rash or lesions. HEENT: EOM intact and pupils equal round. Pertinent negatives noted - no carotid bruit. Cardiovascular: regular rate and rhythm, normal S1 and S2, no rub, murmurs, or gallop. Pulse characterized as regular.No radial pulse abnormalities. Respiratory: normal breath sounds, no wheezes or crackles. Abdomen: Extremities: Positive for edema (1+ pitting edema in BLE). Neurological: normal cognition and motor skills. Pertinent negatives noted - no abnormal gait. PAIN ASSESSMENT: VITALS: BP 210/70[manual[ Pulse 58 Temp (Src) 98.3 (Temporal) Resp 16 Ht 6' 0 (1.83m) Wt 254 lb (115.2kg) SpO2 99% BMI 34.44 kg/(m^2). Diagnostic tests reviewed for today's visit: Lab Value Units Date High Low HB 12.0 g/dL 08/15/2022 17.0 13.0 HCT 35.9 % 08/15/2022 51.0 39.0 WBC 7.18 k/uL 08/15/2022 11.00 3.70 PLT 245 k/uL 08/15/2022 400 150 NA 139 mmol/L 08/15/2022 144 136 K 4.3 mmol/L 08/15/2022 5.1 3.7 GLUC 97 mg/dL 08/15/2022 99 74 BUN 29 mg/dL 08/15/2022 24 9 CREAT 1.19 mg/dL 08/15/2022 1.22 0.73 PTSEC No results within date range. INR No results within date range. APTT No results within date range. ALT 12 U/L 08/15/2022 54 10 AST 14 U/L 08/15/2022 40 14 TBILI 0.2 mg/dL 08/15/2022 1.3 0.2 TSH No results within date range. Lab Value Units Date High Low HCGQT No results within date range. UHCG No results within date range. HCG, BODY* No results within date range. Lab Value Units Date High Low ABORHD No results within date range. ABSCREEN No results within date range. Hemoglobin A1C (%) Date Value 08/15/2022 8.2 No results found for this or any previous visit (from the past 8760 hour(s)). No results found for this or any previous visit (from the past 35599 hour(s)). Assessment Class 1 obesity due to excess calories with serious comorbidity and body mass index (BMI) of 34.0 to 34.9 in adult Assessment: Body mass index is 34.45 kg/m . Mixed hyperlipidemia Assessment: Stable, on RX. Type 2 diabetes mellitus, with long-term current use of insulin (HCC) Assessment: Compliant on Tresiba insulin 25 unit in the morning, metformin, glimepiride, Actos and glyburide. Does check BS at home, FBS 60-85 per pt. A1C 8.2 in 07/2022. A1C pending. Anemia Assessment: H/H 12.0/35.9 in 07/2022. Essential hypertension, benign Assessment: Compliant on RX. BP today 206/99. Pt reports that PCP took him off HCTZ, but he restarted medication yesterday. Letter faxed to PCP on 12/11/2022 for PCP clearance regarding elevated BP. Pt was advised to seek care at the ED if he begins experiencing CP, SOB, numbness/tingling, lightheadedness/dizziness, facial drooping. Discussed risks of elevated blood pressure with patient, including heart attack and stroke. Encouraged pt to check BP at home and keep a log. He verbalized understanding. Metcalf Activity Status Index: METS: Have sexual relations (5.25 METs) DASI Score: 5.25 (Hunting, cutting trees down.) Patient denies any chest pain or undue shortness of breath with the above physical activity. Clinical Frailty Scale: 3. Well, with treated comorbid disease STOP-Bang Score: Snores loudly Has or is being treated for high blood pressure Patient over 50 years old Has a large neck Male patient Denies feeling tired, fatigued, or sleepy during the daytime Has not been observed to stop breathing or choking/gasping during sleep BMI less than or equal to 35 kg/m^2 STOP-Bang Score: 5 [id number] Score: Hypertension history: Yes Diabetes history: Yes [id number] Score: 2 ARISCAT Score: Emergency procedure: No ARISCAT Score: ASA Class: 3 ANESTHESIA FINDINGS: Intubation History: No history of difficult intubation. No abnormal airway history Significant Anesthesia Considerations: pt reports h/o being combative when coming out of anesthesia in the past. Airway History: No history of difficult airway No abnormal airway history I - PHYSICAL EVALUATION AIRWAY Patient intubated: No. Tracheostomy tube not present Mallampati: III. TM distance: >3 FB. Neck ROM: full ROM without neurological symptoms. Mouth opening: adequate. Short neck: no. Thick neck: yes Tran present: no DENTAL Dental findings: teeth intact. Additional comments: +Crowns. II - ANESTHESIA PLAN ASA Score: 3 Anesthetic Plan: general Beta Matthew Monitoring Plan Post Procedure Analgesic Plan Prepared for Surgery: optimally prepared for surgery, pending [see comment]. LABS, ECG, and PCP CLEARANCE. CONSULTS: The following consults have been initiated at this time: primary care/internal medicine (elevated BP, letter faxed 12/11/22). Planned Anesthetic: general The Following Tests/Procedures Have Been Initiated: Orders Placed This Encounter CBC with Differential Standing Status: Future Number of Occurrences: 1 Standing Expiration Date: 02/10/2023 BMP Standing Status: Future Number of Occurrences: 1 Standing Expiration Date: 02/10/2023 HGB A1C Standing Status: Future Number of Occurrences: 1 Standing Expiration Date: 02/10/2023 glimepiride (AMARYL) 4 mg tablet Sig: Take 4 mg by mouth daily with breakfast. ECG COMPLETE Standing Status: Future Number of Occurrences: 1 Standing Expiration Date: 12/11/2023 Instructions Given to Patient: Instructions located in the after visit summary. Patient given verbal and written preop instructions and voices comprehension and compliance. SIGNATURE: Clemente Plummer PA-C PATIENT NAME: Nida Dawson DATE: December 10, 2022 TIME: 2:04 PM PAGER/CONTACT #: documented in this encounter [facility] 08-15-2022 History and physi shai note HISTORY AND PHYSICAL EXAMINATION SERVICE DATE: 08/15/2022 SERVICE TIME: 8:19 AM PRIMARY CARE PHYSICIAN: Marci Goff APRN.HOME COMPANION REASON FOR VISIT: Nida Dawson is a 72 year old male who is scheduled for Procedure(s): AMPUTATION TOE INTERPHALANGEAL JOINT (Right) REPAIR TOE HAMMER (Right) at the request of Dr. Reji Brady for consultation. My final recommendation will be communicated back to the requesting physician by way of shared medical record or letter. Subjective The patient has the following: ACTIVE PROBLEM LIST Type 2 Diabetes Mellitus, With Long-Term Current Use of Insulin (Hcc) Essential Hypertension, Benign Mixed Hyperlipidemia Class 1 Obesity Due to Excess Calories With Serious Comorbidity and Body Mass Index (Bmi) of 33.0 to 33.9 in Adult History of Right Shoulder Replacement COVID-19 Immunization Status Overdue - COVID-19 VACCINE (4 - Booster for Moderna series) Overdue since 01/08/2022 11/13/2021 Imm Admin: COVID-19 original vaccine, full dose, monovalent (MODERNA) 04/04/2021 Imm Admin: COVID-19 original vaccine, full dose, monovalent (MODERNA) 03/07/2021 Imm Admin: COVID-19 original vaccine, full dose, monovalent (MODERNA) CHIEF COMPLAINT: Pre-op exam HPI: WA is a 72 yo seen for PAC due to scheduled above surgery because of a hammer toe/ulcer. REVIEW OF SYSTEMS: General: No weight loss, malaise or fevers. Neurological: No history of TIA's, stroke, PROGRAM CONTROL ANALYST tumor, impaired sensorium, hemiplegia, paraplegia or quadraplegia. No neurological symptoms or problems. Respiratory: No history of current cough or dyspnea, or pneumonia in the past 6 weeks. No history of respiratory/pulmonary symptoms or problems. Cardiovascular: Positive for: hyperlipidemia (on rx) and hypertension (on rx) GI: No history of GI symptoms or problems. No history of esophageal varices, recent ascites, or ETOH greater than 2 drinks per day. : No history of dysuria, frequency or incontinence, stones or chronic kidney disease. No difficulty urinating, nocturia > 1 time per night or hematuria. Endocrine: No history of diabetes. Has not taken steroids within the past 30 days. No history of endocrinological symptoms or problems. Positive for: diabetes mellitus. Patient's diabetes mellitus is controlled by insulin and oral agents. Negative for: hypothyroidism. Hematology: No history of bleeding or clotting disorder. Patient is not taking anti-coagulation or platelet medications. No history of hematological symptoms or problems. Oncology: No history of CA metastasis, chemo within 30 days, or radiotherapy within 90 days. No history of oncological symptoms or problems. Psych: No history of psychiatric symptoms or problems. Musculoskeletal: See HPI. S/p right shoulder replacement Skin: See HPI. PAST MEDICAL HISTORY Diagnosis Date Diabetes (HCC) Hypertension Lipoma of anterior chest wall PAST SURGICAL HISTORY Procedure Laterality Date KNEE SURGERY HX Bilateral SHOULDER SURGERY HX Right FAMILY HISTORY Problem Relation Age of Onset Cancer Mother Heart Father Social History Tobacco Use Smoking status: Never Smokeless tobacco: Never Vaping Use Vaping Use: Never used Substance Use Topics Alcohol use: No Drug use: No Prior to Admission medications as of 08/15/22 0808 Medication Sig Last Dose Taking pioglitazone (ACTOS) 45 mg tablet Take 45 mg by mouth once daily. Taking Yes insulin degludec (TRESIBA FLEXTOUCH U-100 SUBCUTANEOUS) Inject 25 Units subcutaneously. Taking Yes Vitamin A 2,400 mcg capsule Take 2,400 Units by mouth once daily. Taking Yes Cyanocobalamin (VITAMIN B-12) 2,500 mcg subl Dissolve under the tongue. Taking Yes Ascorbic Acid (VITAMIN C) 1,000 mg tablet Take 1,000 mg by mouth once daily. Taking Yes cholecalciferol (VITAMIN D-3) 5,000 unit tab Take 5,000 Units by mouth once daily. Taking Yes magnesium oxide 400 mg magnesium tab Take by mouth. Taking Yes lisinopril (ZESTRIL, PRINIVIL) 20 mg tablet Take 20 mg by mouth once daily. Taking Yes hydrochlorothiazide (HYDRODIURIL, ESIDRIX) 12.5 mg tablet Take 12.5 mg by mouth twice daily. Taking Yes metFORMIN (GLUCOPHAGE) 1,000 mg tablet Take 1,000 mg by mouth twice daily with meals. Taking Yes simvastatin (ZOCOR) 40 mg tablet Take 40 mg by mouth daily at bedtime. Taking Yes glyBURIDE (MICRONASE, DIABETA) 5 mg tablet Take 10 mg by mouth twice daily with meals. Taking Yes No medication comments found. ALLERGIES Allergen Reactions Food Extracts Swelling Mushrooms Objective PHYSICAL EXAM: General: alert and oriented (x3), healthy appearance and obese. Pertinent negatives noted - not distressed. Skin: normal color, no rash or lesions. HEENT: EOM intact and pupils equal round. Pertinent negatives noted - no carotid bruit. Cardiovascular: regular rate and rhythm, normal S1 and S2, no rub, murmurs, or gallop. Respiratory: normal breath sounds, no wheezes or crackles. No chest wall deformity or tenderness. Abdomen: soft. Pertinent negatives noted - not tender. Extremities: no deformity, no edema or tenderness, no joint swelling or clubbing. Neurological: normal cognition and motor skills. Gait normal. No weakness or sensory deficit. PAIN ASSESSMENT: VITALS: BP 150/70 Pulse 60 Temp (Src) 97.7 (Temporal) Resp 16 Ht 6' 1 (1.85m) Wt 256 lb (116.1kg) SpO2 99% BMI 33.78 kg/(m^2). Diagnostic tests reviewed for today's visit: Lab Value Units Date High Low HB No results within date range. HCT No results within date range. WBC No results within date range. PLT No results within date range. NA No results within date range. K No results within date range. GLUC No results within date range. BUN No results within date range. CREAT No results within date range. PTSEC No results within date range. INR No results within date range. APTT No results within date range. ALT No results within date range. AST No results within date range. TBILI No results within date range. TSH No results within date range. Lab Value Units Date High Low HCGQT No results within date range. UHCG No results within date range. HCG, BODY* No results within date range. Lab Value Units Date High Low ABORHD No results within date range. ABSCREEN No results within date range. No results found for: HBA1C No results found for this or any previous visit (from the past 8760 hour(s)). No results found for this or any previous visit (from the past 60387 hour(s)). Assessment Type 2 diabetes mellitus, with long-term current use of insulin (HCC) Assessment: IDDM and oral agent New a1c pending Essential hypertension, benign Assessment: controlled on rx Last 14 BP Last 14 Encounter BP Readings: Date: BP: 08/15/2022 150/70 10/08/2020 151/69[room air[ 02/18/2016 189/76 12/31/2015 196/80 05/22/2015 173/75 Mixed hyperlipidemia Assessment: c/w statin Class 1 obesity due to excess calories with serious comorbidity and body mass index (BMI) of 33.0 to 33.9 in adult Assessment: Body mass index is 33.78 kg/m . History of right shoulder replacement Assessment: hx Metcalf Activity Status Index: METS: Climb a flight of stairs or walk up a hill (5.50 METs) DASI Score: 5.5 Patient denies any chest pain or undue shortness of breath with the above physical activity. Clinical Frailty Scale: 3. Well, with treated comorbid disease STOP-Bang Score: Snores loudly Has or is being treated for high blood pressure Patient over 50 years old Has a large neck Male patient Denies feeling tired, fatigued, or sleepy during the daytime Has not been observed to stop breathing or choking/gasping during sleep BMI less than or equal to 35 kg/m^2 STOP-Bang Score: 5 [id number] Score: Age: 65-74 Sex: male CHF history: No Hypertension history: Yes Stroke/TIA/thromboembolism history: No Vascular disease history: No Diabetes history: Yes [id number] Score: 3 ARISCAT Score: Age: 51-80 Preoperative SpO2: >=96% Respiratory infection in the last month: No Preoperative anemia: No Surgical incision: peripheral Duration of surgery: <2 hrs Emergency procedure: No ARISCAT Score: 3 ASA Class: 3 ANESTHESIA FINDINGS: Intubation History: No history of difficult intubation Significant Anesthesia Considerations: h/o combativeness when emerging from anesthesia Airway History: No history of difficult airway I - PHYSICAL EVALUATION AIRWAYTracheostomy tube not present Mallampati: III. TM distance: >3 FB. Neck ROM: full ROM without neurological symptoms. Mouth opening: adequate. Short neck: no. Thick neck: yes DENTAL Dental findings: teeth intact. II - ANESTHESIA PLAN ASA Score: 3 Anesthetic Plan: other Anesthetic plan additional comments: *PACC/TCI - anesthesia choice. Informed Consent Anesthetic risks, benefits, alternatives, personnel and consent discussed: yes. Patient / Responsible Constitution Party agrees to proceed: yes Patient / Surrogate agrees to blood products: blood products not planned Prepared for Surgery: optimally prepared for surgery, pending [see comment]. labs CONSULTS: Patient does not require consults for optimization at this time Planned Anesthetic: other anesthesia choice The Following Tests/Procedures Have Been Initiated: Orders Placed This Encounter pioglitazone (ACTOS) 45 mg tablet Sig: Take 45 mg by mouth once daily. insulin degludec (TRESIBA FLEXTOUCH U-100 SUBCUTANEOUS) Sig: Inject 25 Units subcutaneously. Vitamin A 2,400 mcg capsule Sig: Take 2,400 Units by mouth once daily. Cyanocobalamin (VITAMIN B-12) 2,500 mcg subl Sig: Dissolve under the tongue. Ascorbic Acid (VITAMIN C) 1,000 mg tablet Sig: Take 1,000 mg by mouth once daily. cholecalciferol (VITAMIN D-3) 5,000 unit tab Sig: Take 5,000 Units by mouth once daily. magnesium oxide 400 mg magnesium tab Sig: Take by mouth. Instructions Given to Patient: Instructions located in the after visit summary. Patient given verbal and written preop instructions and voices comprehension and compliance. SIGNATURE: Schuyler Mendoza APRN.CNP PATIENT NAME: Nida Dawson DATE: August 15, 2022 TIME: 8:19 AM PAGER/CONTACT #: documented in this encounter [facility] 08-15-2022 Instructions Schuyler Mendoza APRN.ALLYSON - 08/15/2022 8:19 AM EDT PATIENT PREOPERATIVE INSTRUCTIONS Reji Brady DPM has scheduled you for your procedure at this surgery center: [facility]: [phone] -- [address] [address]. Please read below carefully for your personalized instructions. Dietary Restrictions: - No solid food after midnight. - You may have 12 ounces of clear liquids (water, clear juices such as apple juice or gatorade, carbonated beverages, clear tea, black coffee, jello) until 2 hours before scheduled arrival at facility. Medications: Unless instructed differently below, stay on all of your medications until your surgery. Approved medications to take the morning of surgery with a sip of water: Simvastatin Do not take Lisinopril, Hydrochlorothiazide the morning or evening prior to surgery - No ORAL diabetic medication the morning of surgery. - Accucheck day of surgery. - Take half dose of long acting insulin (Lantus, NPH) the day of surgery. If you take any medications for erectile dysfunction-Cialis (Tadalafil), Levitra, Staxyn (Vardenafil) Viagra (Sildenenafil please do not take these for 48 hours before surgery. If you start any new medications after today's visit, please contact the surgeon's office. Blood Thinning Medications: - Stop NSAIDS (Ibuprofen, Advil, Aleve, Motrin, Celebrex, Mobic, etc.) 7 days before surgery, as directed by your surgeon. - Stop Aspirin 7 days before surgery, as directed by your surgeon. - Stop Vitamin E, ALL multi-vitamins, herbals and dietary supplements 7 days before surgery. - You may take Tylenol (Acetaminophen) or any of your pain medications that do not contain aspirin or NSAIDS as needed. Important Reminders: - If you use CPAP/BIPAP, bring the machine with you to the surgery center. - If you are prescribed inhalers for breathing, continue using them. - Candy, mints, and tobacco products are NOT permitted the morning of surgery. - Hearing aids, dentures and glasses may be worn the morning of surgery. - NO jewelry, body piercings, makeup, hairpins or contacts are to be worn the day of surgery. If you develop symptoms such as a fever, cold, or flu, or have other changes to your health within TWO DAYS of scheduled surgery or the morning of surgery, please contact the surgery center above. Personal Belongings: -Please have photo ID and insurance cards. -If you do not have a copy of advance directives on file with us, please bring a copy with you on the day of surgery. - Leave ALL valuables and money at home or with family members. For Outpatient Procedures: - YOU MUST HAVE A RESPONSIBLE AEROBICS INSTRUCTOR TAKE YOU HOME. A PHYSICAL PLANT EMPLOYEE OR HEAVY TRUCK MECHANIC CANNOT BE MADE A RESPONSIBLE AEROBICS INSTRUCTOR. - We recommend that a responsible person stays with you overnight to take care of you. - You cannot stay in a hotel alone after outpatient surgery. You will not be permitted to have your surgery, if you do not have someone to take care of you. Arrival Time for Surgery: - The Surgery Center or hospital where you are having surgery will call the afternoon before surgery (or Thursday for Thursday surgery) with a scheduled arrival time. - If you have not heard by 4 pm, please contact the surgery center above. Please be aware that emergency situations arise, which may delay or change your surgical time. If this happens, we will notify you as soon as possible and regret any inconvenience. If you already have an Advance Directive, please fax a copy to [phone] or email to for it to be added to your chart. If you do not have an Advance Directive, you can find the appropriate form and more information at [email or web address]. We recommend that you complete the Advance Directive form found on the website and bring it with you the day of your surgery. It can be witnessed and scanned into your chart that day. Schuyler Mendoza APRN.CNP documented in this encounter [facility] documented as of this encounter (statuses as of 08/15/2022) [facility]02-[facility] History of Past illness Narrative* Problem Noted Date Resolved Date Lipoma of anterior chest wall 01/09/2016 documented as of this encounter (statuses as of 12/11/2022) [facility] Pre-operative examination- Primary Preoperative examination, unspecified Type 2 diabetes mellitus with other specified complication, with long-term current use of insulin (HCC) Essential hypertension, benign Mixed hyperlipidemia Class 1 obesity due to excess calories with serious comorbidity and body mass index (BMI) of 33.0 to 33.9 in adult History of right shoulder replacement Ulcer of toe of right foot, limited to breakdown of skin (HCC) Hallux varus, right [facility] Diagnosis Preoperative examination- Primary Preoperative examination, unspecified Type 2 diabetes mellitus with other specified complication, with long-term current use of insulin ([facility]) Class 1 obesity due to excess calories with serious comorbidity and body mass index (BMI) of 34.0 to 34.9 in adult Mixed hyperlipidemia Anemia, unspecified type Essential hypertension, benign 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 documented [facility] this [facility] ([facility])* Outpatient Procedure (Routine) - Closed Specialty Diagnoses / Procedures Referred By Luciana t Referred To [facility] Diagnoses Preoperative examination Essential hypertension, benign Procedures ECG COMPLETE ECG ROUTINE ECG W/LEAST 12 LDS W/I&R Clemente Plummer PA-C [address] [address] [facility] [address] [place] [address] Referral ID Status Reason Start Date Expiration Date V isits Requested Visits Authorized [id number] Closed Auto-Generate d Referral 12/11/2022 12/11/2023 1 1 [facility] Summary Purpose Family History No Family History Records FoundNo Family History Records FoundNo Family History Records FoundNo Family History Records Found Advance Directives No Advanced Directives Records FoundNo Advanced Directives Records FoundNo Advanced Directives Records FoundNo Advanced Directives Records Found Additional Source Comments (unrecognized sect ion and content) No Status Records FoundNo Status Records FoundNo Status Records FoundNo Status Records Found INFORMATION SOURCE (unrecogn ized section and content) DATE CREATED AUTHOR AUTHOR'S ORGANIZ ATION 02/01/2019 [facility] DATE CREATED AUTHOR AUTHOR'S ORGANIZ ATION 08/18/2022 [facility] DATE CREATED AUTHOR AUTHOR'S ORGANIZ ATION 12/31/2022 [facility] Source Comments (unrecognize d section and content) In the event this informatio n is protected by the Federal Confidentiality of Alcohol and Drug Abuse Patient Records regulations: The Federal rules restrict any use of the information to criminally investigate or prosecute any alcohol or drug abuse patient.[facility] the event this information is protected by the Federal Confidentiality of Alcohol and Drug Abuse Patient Records regulations: The Federal rules restrict any use of the information to criminally investigate or prosecute any alcohol or drug abuse patient.[facility] Reason for Visit (unrecogniz ed section and content) Reason Comments Anesthesia Consult Care Teams (unrecognized sec tion and content) [employer] Relationship Specialty Start Date End Date Marci Goff, [employer] [address] [place] [address] PCP - General Family Medicine 01/05/14 FOR RECORDS PERTAINING TO PATIENTS WHO ARE OR HAVE BEEN ENROLLED IN A CHEMICAL DEPENDENCY/SUBSTANCEABUSE PROGRAM, SOME INFORMATION MAY BE OMITTED. This clinical summary was aggregated from multiple sources. Caution should be exercised in using it in the provision of clinical care. This summary normalizes information from multiple sources, and as a consequence, information in this document may materially change the coding, format and clinical context of patient data. In addition, data may be omitted in some cases. CLINICAL DECISIONS SHOULD BE BASED ON THE PRIMARY CLINICAL RECORDS. [facility] [employer] provides no warranty or guarantee of the accuracy or completeness of information in this document.
[2023-11-23 22:07] LABS: Absolute Lymphocyte Count 2.21 X10^3/uL (0.83-4.51); Absolute Neutrophil Count 3.3 X10^3/uL (2.0-7.7); Basophil# 0.03 X10^3/uL; Basophil% 0.5 % (0-1); Eosinophils% 1.6 % (0-5); Hematocrit 36.9 % (40-54); Hemoglobin 12.1 g/dL (13.0-16.5); Lymphocyte # 2.21 X10^3/ul (0.83-4.51); Lymphocyte % 35.7 % (19-41); Mean Corp Hgb Conc 32.8 g/dL (32-36); Mean Corpuscular Hgb 28.6 pg (27.0-32.0); Mean Corpuscular Volume 87.2 fL (80-94); Mean Platelet Vol. 10.5 fl (6.2-12.0); Monocyte# 0.52 X10^3/uL; Monocyte% 8.4 % (0-10); NRBC Flagged by Analyzer 0 % (0-5); Neutrophil # 3.31 X10^3/uL (2.7-7.7); Neutrophil % 53.5 % (47-70); Platelet Count 240 K/mm3 (150-450); RBC Distribution Width CV 12.3 % (11.6-14.6); RBC Distribution Width SD 39.2 fl (35.1-43.9); Red Blood Count 4.23 M/mm3 (4.6-6.2); White Blood Count 6.2 K/mm3 (4.4-11.0)
[2023-11-23 22:26] LABS: AST(SGOT) 19 U/L (15-37); Alanine Aminotransfer ALT/SGPT 26 U/L (16-61); Albumin, Serum 3.5 g/dL (3.2-5.0); Alkaline Phosphatase 73 U/L (45-117); Anion Gap 4 (5-15); BUN 27 mg/dL (7-18); BUN/Creat Ratio 20.5 RATIO (10-20); Calcium,Total 9.1 mg/dL (8.5-10.1); Chloride 105 mmol/L (98-107); Cholesterol 141 mg/dL (200); Creatinine, Serum 1.32 mg/dL (0.70-1.30); EST Glomerular Filtration Rate 57 mL/min (>60); Est Glom Filt Rate - Afr Amer 69 mL/min (>60); Globulin 3.4 g/dL (2.2-4.2); Glucose 279 mg/dL (74-106); High Density Lipoprotein 81 mg/dL; PSA,Total - Annual Screen 0.14 ng/mL (0.00-4.00); Potassium 4.8 mmol/L (3.5-5.1); Protein, Total 6.9 g/dL (6.4-8.2); Sodium Level 139 mmol/L (136-145); Triglycerides 53 mg/dL; Very Low Density Lipoprotein 11 mg/dL (5-40)
[2023-11-23 22:39] LABS: Hemoglobin A1c 9.4 % (3.8-5.6)
== END | disposition home or self-care (01) ==
PROVIDERS: Visit Provider Nurse Practitioner
DX: R35.0 Frequency of micturition (principal); E11.621 Type 2 diabetes mellitus with foot ulcer; L97.511 Non-pressure chronic ulcer of other part of right foot limited to breakdown of skin; I10 Essential (primary) hypertension; D64.9 Anemia, unspecified; E78.5 Hyperlipidemia, unspecified; Z12.5 Encounter for screening for malignant neoplasm of prostate
CPT/HCPCS: 80053; 80061; 83036; 84153; 85025; G0103

== ENCOUNTER → 2024-10-03 | Outpatient (CLI) | payer MEDICARE, OTHER, SELFPAY ==
[2024-10-03 22:15] LABS: Absolute Lymphocyte Count 1.88 X10^3/uL (0.83-4.51); Absolute Neutrophil Count 3.7 X10^3/uL (2.0-7.7); Basophil# 0.04 X10^3/uL; Basophil% 0.6 % (0-1); Eosinophil# 0.12 X10^3/uL; Eosinophils% 1.9 % (0-5); Hematocrit 33.6 % (40-54); Hemoglobin 11.3 g/dL (13.0-16.5); Lymphocyte # 1.88 X10^3/ul (0.83-4.51); Lymphocyte % 30.2 % (19-41); Mean Corp Hgb Conc 33.6 g/dL (32-36); Mean Corpuscular Hgb 29.5 pg (27.0-32.0); Mean Corpuscular Volume 87.7 fL (80-94); Mean Platelet Vol. 10.7 fl (6.2-12.0); Monocyte# 0.44 X10^3/uL; Monocyte% 7.1 % (0-10); NRBC Flagged by Analyzer 0 % (0-5); Neutrophil # 3.73 X10^3/uL (2.7-7.7); Platelet Count 219 K/mm3 (150-450); RBC Distribution Width CV 12.4 % (11.6-14.6); RBC Distribution Width SD 39.7 fl (35.1-43.9); Red Blood Count 3.83 M/mm3 (4.6-6.2); White Blood Count 6.2 K/mm3 (4.4-11.0)
[2024-10-03 22:35] LABS: AST(SGOT) 17 U/L (15-37); Alanine Aminotransfer ALT/SGPT 20 U/L (16-61); Albumin, Serum 3.3 g/dL (3.2-5.0); Alkaline Phosphatase 67 U/L (45-117); Anion Gap 5 (5-15); BUN 26 mg/dL (7-18); BUN/Creat Ratio 21.7 RATIO (10-20); Calcium,Total 8.9 mg/dL (8.5-10.1); Chloride 107 mmol/L (98-107); Cholesterol 185 mg/dL (200); EST Glomerular Filtration Rate 63 mL/min (>60); Est Glom Filt Rate - Afr Amer 77 mL/min (>60); Globulin 3.2 g/dL (2.2-4.2); Glucose 154 mg/dL (74-106); High Density Lipoprotein 93 mg/dL; PSA,Total- Diagnostic 0.13 ng/mL (0.0-4.0); Potassium 4.2 mmol/L (3.5-5.1); Protein, Total 6.5 g/dL (6.4-8.2); Sodium Level 140 mmol/L (136-145); Triglycerides 58 mg/dL; Very Low Density Lipoprotein 12 mg/dL (5-40)
[2024-10-03 22:53] LABS: Hemoglobin A1c 8.5 % (3.8-5.6)
== END | disposition home or self-care (01) ==
PROVIDERS: PCP Nurse Practitioner; Referring Provider Nurse Practitioner; Visit Provider Nurse Practitioner
DX: E11.9 Type 2 diabetes mellitus without complications (principal); I10 Essential (primary) hypertension; R35.0 Frequency of micturition
CPT/HCPCS: 80053; 80061; 83036; 84153; 85025

== ENCOUNTER → 2024-12-19 | Outpatient (CLI) | payer MEDICARE, OTHER, SELFPAY ==
[2024-12-20 00:54] LABS: Absolute Lymphocyte Count 2.06 X10^3/uL (0.83-4.51); Absolute Neutrophil Count 4.4 X10^3/uL (2.0-7.7); Basophil# 0.04 X10^3/uL; Basophil% 0.6 % (0-1); Eosinophil# 0.09 X10^3/uL; Eosinophils% 1.3 % (0-5); Hematocrit 35.2 % (40-54); Hemoglobin 11.7 g/dL (13.0-16.5); Lymphocyte # 2.06 X10^3/ul (0.83-4.51); Lymphocyte % 29.1 % (19-41); Mean Corp Hgb Conc 33.2 g/dL (32-36); Mean Corpuscular Hgb 29.3 pg (27.0-32.0); Mean Platelet Vol. 10.9 fl (6.2-12.0); Monocyte# 0.49 X10^3/uL; Monocyte% 6.9 % (0-10); NRBC Flagged by Analyzer 0 % (0-5); Neutrophil # 4.36 X10^3/uL (2.7-7.7); Neutrophil % 61.7 % (47-70); Platelet Count 236 K/mm3 (150-450); RBC Distribution Width CV 12.5 % (11.6-14.6); RBC Distribution Width SD 40.2 fl (35.1-43.9); White Blood Count 7.1 K/mm3 (4.4-11.0)
[2024-12-20 01:06] LABS: AST(SGOT) 15 U/L (15-37); Alanine Aminotransfer ALT/SGPT 19 U/L (16-61); Albumin, Serum 3.2 g/dL (3.2-5.0); Alkaline Phosphatase 61 U/L (45-117); Anion Gap 6 (5-15); BUN 31 mg/dL (7-18); BUN/Creat Ratio 21.8 RATIO (10-20); Calcium,Total 9.2 mg/dL (8.5-10.1); Chloride 106 mmol/L (98-107); Creatinine, Serum 1.42 mg/dL (0.70-1.30); EST Glomerular Filtration Rate 52 mL/min (>60); Est Glom Filt Rate - Afr Amer 63 mL/min (>60); Globulin 3.2 g/dL (2.2-4.2); Glucose 231 mg/dL (74-106); Potassium 4.6 mmol/L (3.5-5.1); Protein, Total 6.4 g/dL (6.4-8.2); Sodium Level 139 mmol/L (136-145)
== END | disposition home or self-care (01) ==
PROVIDERS: PCP Nurse Practitioner; Referring Provider Nurse Practitioner; Visit Provider Nurse Practitioner
DX: E11.65 Type 2 diabetes mellitus with hyperglycemia (principal); E78.5 Hyperlipidemia, unspecified
CPT/HCPCS: 80053; 85025